=== PATIENT | male | born 1955 | race Caucasian/White ===

== ENCOUNTER 2023-04-30 07:32 | Observation (INO) ==
--- NOTE | 2023-04-23 11:37 | Anesthesiology Consultation ---
Date of Service April 23, 2023 Assessment & Plan (1) Encounter for pre-operative examination: Plan - medical clearance 04/08/23: "...yes...medically cleared for surgery..." - COVID screening: Per risk assessment analyst on 04/23/2023: Travel screen negative, no known COVID-19 positive contacts or current COVID-19 related symptoms in past 2 weeks. To surgeon's discretion if preop COVID testing is needed. - Patient requiring admission post-operatively. Plan for recheck with COVID [facility] AM DOS due to possibility that patient may have a roommate. OR aware. [facility] order placed. - surgery re-scheduled d/t cut on leg per [facility] ortho. - Outpatient joint assessment: Patient is currently scheduled for inpatient pathway. If re-evaluated pending system levels during current pandemic/surgeon requests outpatient pathway, patient is not recommended candidate for outpatient joint program from anesthesia standpoint. Chart Review Chart Review: Acceptable Risk for Surgery and Patient NOT seen in Pre Admission Testing History Surgery Operation Date: 04/30/23 10:10 Proposed Procedures p Left Total Knee Arthroplasty - Curly Lema MD Height/Weight Height: 5 ft 10 in Weight: 106.594 kg Allergies Allergy/AdvReac Type Severity Reaction Status Date / Time No Known Allergies Allergy Verified 04/23/23 11:04 Medications Home Medications Medication Instructions Recorded Confirmed Last Taken Lactobacillus acidophilus 10 10,000 mmu cells PO QAM 03/26/23 04/23/23 04/02/23 billion cell capsule (Probiotic) aspirin 81 mg capsule 81 mg PO QAM 03/26/23 04/23/23 04/02/23 latanoprost 0.005 % eye drops 1 drp OPB HS 03/26/23 04/23/23 04/14/23 22:00 multivitamin 1 tab PO QAM 03/26/23 04/23/23 04/02/23 naproxen sodium 220 mg tablet 440 mg PO QAM 03/26/23 04/23/23 04/02/23 (Aleve) Past Medical History Medical History Apnea Noted during most recent colonoscopy per patient - patient does snore at night - no hx of sleep study Elevated blood pressure reading in office with diagnosis of hypertension no medications monitor BP at home Eye pressure follows with eye doctor - reason for latanoprost>preventative History of COVID-19 09/2022>resolved Osteoarthritis Past Family History Family History Other No family history of adverse response to anesthesia Past Surgical History Surgical History H/O hand surgery left hand finger tendon repair H/O lumbar discectomy History of arthroscopy left knee meniscus repair History of colonoscopy History of tooth extraction Hx of nasal septoplasty Social History Smoking Status: Former smoker tobacco type: cigarettes and cigars Do You Dip or Chew Tobacco: No Smoking End Date: 5 years ago Hx Alcohol Use: Yes Alcohol type: beer alcohol intake frequency: a few times a week Hx Substance Use: No substance use type: does not use Lab Results Anesthesia Preop Results Results Anesthesia Widget: WBC 6.89 K/ul (4.8-10.8) 03/29/23 Hgb 15.5 g/dl (14.0-18.0) 03/29/23 Hct 45.1 % (42.0-52.0) 03/29/23 Plt 171 K/uL (130-400) 03/29/23 Na 139 mmol/L (136-145) 03/29/23 K 4.6 mmol/L (3.5-5.1) 03/29/23 Cl 104 mmol/L (98-107) 03/29/23 CO2 29 mmol/L (21-32) 03/29/23 BUN 16 mg/dl (6-23) 03/29/23 Creat 0.87 mg/dl (0.6-1.4) 03/29/23 Glucose Level 92 mg/dl (70-99(Fasting)) 03/29/23 PT 10.8 Seconds (9.0-12.0) 03/29/23 PTT 26.8 Seconds (21.0-31.0) 03/29/23 INR 1.0 (0.9-1.1) 03/29/23 Urine Color Dark Yellow 03/29/23 Urine Appearance Clear (Clear) 03/29/23 Urine pH 5.5 (4.5-7.5) 03/29/23 Urine Specific [place] 1.023 (1.000-1.030) 03/29/23 Urine Protein Negative (Negative) 03/29/23 Urine Glucose (UA) Negative (Negative) 03/29/23 Urine Ketones Trace (Negative) H 03/29/23 Urine Blood 2+ (Negative) H 03/29/23 Urine Nitrite Negative (Negative) 03/29/23 Urine Bilirubin Negative (Negative) 03/29/23 Urine Urobilinogen Negative (Negative) 03/29/23 Urine Leukocyte Esterase Negative (Negative) 03/29/23 Urine WBC (Auto) 1-5 /hpf (0-5) 03/29/23 Urine RBC (Auto) >30 /hpf (0-4) H 03/29/23 Urine Hyaline Casts (Auto) 1-5 /lpf (0-5) 03/29/23 Urine Epithelial Cells (Auto) 0-5 /lpf (0-5) 03/29/23 Urine Bacteria (Auto) Negative (Negative) 03/29/23 SARS-CoV-2, RNA, NAAT NEGATIVE (NEGATIVE) 04/16/23 Blood Type O Positive 03/29/23 Antibody Screen NEGATIVE 03/29/23 Testing Electrocardiogram Date: 03/29/23 NSR, rate 60 bpm
[~2023-04-30 07:32] MED LIST: ACETAMINOPHEN 500 MG TAB PO SCH; BUPIVACAINE 0.5 % 5 MG/1 ML PF 10ML VIAL ONE; CeleBREX 200 MG CAP PO SCH; FAMOTIDINE 20 MG TAB PO SCH; LR 500ML BOLUS, THEN 15ML/HR IV SCH; LR 60ML/HR IV SCH; ROPIVACAINE 0.5% 5 MG/ML 30 ML VIAL ONE; ROPIVACAINE 0.5% HCL/PF 150 MG, BUPIVACAINE 0.75% MPF 20 ML, EPINEPHrine 0.15 MG, Ketor... INFIL SCH; TRANEXAMIC ACID 1,000 MG **IV Pre-op IV SCH; ceFAZolin 2000MG 2,000 MG/15 ML SYR IV SCH; dexAMETHasone 4 MG TAB PO SCH; oxyCODONE HCL 10 MG TABCR (OxyCONTIN) PO SCH; traMADol HCL 50 MG TABLET PO SCH
[2023-04-30] MEDS ORDERED: PROPOFOL IV EMULSION 10 MG/ML 20 ML VIAL IV ONE ×3 (09:12→12:51)
[2023-04-30] MEDS ORDERED: fentaNYL citrate PF 100 MCG/2 ML VIAL IV PRN (09:14)
[2023-04-30] MEDS ORDERED: ONDANSETRON INJ 2 MG/ML 2 ML VIAL IV PRN ×2 (09:14→15:00)
[2023-04-30] MEDS ORDERED: ePHEDrine sulfate 50 MG/ML AMP IV PRN (09:14)
[2023-04-30] MEDS ORDERED: ATROPINE SULFATE 0.1 MG/ML 10ML SYR IV PRN (09:14)
[2023-04-30] MEDS ORDERED: fentaNYL citrate PF 100 MCG/2 ML VIAL ONE (09:31)
[2023-04-30] MEDS ORDERED: MIDAZOLAM HCL 1 MG/ML 2ML VIAL ONE (09:31)
--- NOTE | 2023-04-30 09:51 | History & Physical Bridge Note ---
Date of Service April 30, 2023 History & Physical Bridge Note I have examined the patient, reviewed the History & Physical and in the interval since the performance of the History & Physical I have noted the following changes of clinical significance: no changes noted left leg lac healed
[2023-04-30] MEDS ORDERED: ORTHO JOINT ANESTHETIC ONE (10:01)
--- NOTE | 2023-04-30 13:17 | Operative Report ---
Post Operative Report Pre & Post Diagnosis Operation Date: 04/30/23 09:50 Pre-Op Diagnosis: Osteoarthritis Knee Left Post-Op Diagnosis: Osteoarthritis Knee Left I identified the patient and participated in the time-out.: Yes Procedure Operation Date: 04/30/23 09:50 Actual Procedures p Left Total Knee Arthroplasty(Left) - Curly Lema MD Surgeon Curly Lema MD Telephone Exchange Operator Hollie Ramires, no resident or fellow available Estimated Blood Loss 10 Findings Consistent with Post-Op Diagnosis Specimens None Anesthesia Type MAC Spinal Regional Complications none Disposition Accompanied Patient To Recovery: No Disposition: Recovery Room Indications [place] is 68 and has severe arthritis of the left knee. He has failed conservative treatment and wishes to have his knee replaced. Description of Procedure Informed consent. Patient identified. He identified the operative site as the left knee. I marked with my initials. Preoperative surgical timeout performed. Preop dose of IV antibiotics given. TXA given. Taken to the OR positioned supine on the OR table. Bump under the left hip. Tourniquet on the left thigh and a padded post under the left calf. The limb was prepped prepped and draped in the usual sterile fashion. DVT prophylaxis intraoperatively with foot pumps. Postop early mobility and chemoprophylaxis. Previous abrasions on the lower leg area are completely healed. Range of motion 0 to about 110 to 115 degrees with 1+ mid position MCL laxity. Otherwise stable. The leg was prepped and draped in the usual sterile fashion. Limb exsanguinated with the Esmarch. Tourniquet inflated 250 mmHg. Midline longitudinal incision was made followed by medial parapatellar arthrotomy. Soft tissue on the anterior aspect of the distal femur was resected. Retropatellar fat pad removed. An extensile medial release performed. Synovial reflection in the lateral gutter released. Patella everted and knee flexed. ACL was mostly d eficient. The medial meniscus was mostly deficient. There were grade 4 changes involving the medial compartment diffusely. Grade 3 changes on the patella. Marginal osteophytes throughout the knee which were removed and intact lateral compartment. Cruciate ligaments were resected. The meniscal remnants were resected. The knee was then subluxated and the forestry pilot hole drill was used to place hole just in front of and between the tibial spines. The intramedullary alignment magnus was applied. The guide was positioned to the tibial tubercle and set to resect 10 mm off of the lateral side corresponding to a skim cut medially. The knee was then placed into full extension and the extra medullary alignment magnus was utilized to confirm alignment and slope. This cut was then made and finished by hand and with a rasp. Sized to a 4. 0 degree cutting block. Manager Content hole drilled into the distal femur just above the PCL origin. Intramedullary alignment magnus inserted. 12 mm thick cut 7 degree valgus left knee. The cut was made distal to the collateral ligaments and the extension gap was an asymmetrically tight 10. Epicondylar axis marked out. The sizing block was applied and sized to a 4. The external rotation drill holes matched the epicondylar axis. The size 4 anterior down cutting block was applied and the cuts were made protecting the collateral ligaments. The flexion gap was also in a symmetric 10. The box cutting guide was applied and lateralized and the box cut was made. I this point did more medial releasing. I applied the size 4 tibial tray lateralized is much as possible and remove the uncapped medial bone. Posterior medial osteophytes were resected and the posterior capsule off the tibia and the gastrocnemius attachment were released along with more of the MCL. At this time I was then able to get the 12.5 mm extension and flexion block in which resolve the lateral looseness. There was no lateral gapping with the knee in extension. The femoral trial was applied. The tibia was aligned with the tubercle and the keel punch was performed. Trialing was then performed which showed good stability and range of motion. I then went to the patella. It was 25 mm thick. A 38 mm 3 peg oval dome patella was selected. The guide was set to preserve 16 mm of bone. The cut was made with residual 15 mm. I carefully aligned the paddle. There was significant bony wear laterally with eburnation. There was a 2 to 3 mm defect about 3 mm wide underneath the medial implant which would need to be filled with cement. The cartilage was removed here and some drill holes were made into the patella and into the medial tibial plateau. Tracking was fine on the patella with no hands technique. Components were removed the canals were plugged and the bony surfaces were meticulously prepared with pulsatile lavage and dried.2 bags of Simplex P cement were mixed and then while in a doughy state smears were placed on the posterior condyles and the, components were cemented in place femur tibia and patella and held in extension with a trial spacer until cement hardened. At that time the tourniquet was let down after 108 minutes of inflation and meticulous hemostasis was performed with minimal bleeding. Prior to cementation Ortho joint mix was injected into the back the knee. Trialing was again performed showing 1+ LCL laxity in mid position the knee was otherwise stable without any gapping and full extension. The patella tracked fine. The knee was then subluxated and the back of the knee was inspected for cement and removed as encountered. The final polyethylene was inserted and the knee was reduced. Soft tissue was kept moist throughout the surgical procedure. Extensor mechanism closed above the equator the patella with interrupted #2 FiberWire. Below the equator with running and interrupted #1 Vicryl. The skin was closed in layers with 0 and 2-0 Vicryl with viktor on the skin. Composite patellar thickness after the reconstruction was 25 mm. [place] assisted flexion with the extensor mechanism closed was 115 to 120 degrees. Lift off pull out negative. Sterile dressing was applied Xeroform 4 x 4's ABD soft wrap full-length Be wrap and a knee immobilizer. He was awakened from anesthesia without difficulty and taken to the recovery room in stable condition. There were no complications counts were correct and blood loss is estimated to be 10 cc. The resected tissue of bone and soft tissue was sent for specimen. At the conclusion of the operation spoke to his and discussed my findings. Components inserted with a J[employer]J PFC Sigma rotating platform knee a size 38 3 peg oval dome patella. For left posterior stabilized femur and a 4 mobile-bearing keeled tray with a posterior stabilized size 4 x 12.5 mm thick polyethylene insert. Rehab according to total knee protocol. I attest to the content of the Intraoperative Record and any orders documented therein. Any exceptions are noted below.
--- NOTE | 2023-04-30 13:34 | Operative Report ---
Post Operative Report Pre & Post Diagnosis Operation Date: 04/30/23 09:50 Pre-Op Diagnosis: Osteoarthritis Knee Left Post-Op Diagnosis: Osteoarthritis Knee Left I identified the patient and participated in the time-out.: Yes Procedure Operation Date: 04/30/23 09:50 Actual Procedures p Left Total Knee Arthroplasty(Left) - Curly Lema MD Surgeon Curly Lema M.D. [employer] Hollie Ramires PA-C, no resident or fellow available Estimated Blood Loss 10 Findings Consistent with Post-Op Diagnosis Specimens bone and soft tissue Anesthesia Type MAC Spinal Regional Description of Procedure Patient was taken to the operating room, placed under spinal anesthesia. Given 2 g of IV Ancef for surgical prophylaxis. Peripheral nerve block given preoperatively. I was present during the entire case and assisted with positioning, tissue retraction, trialing of implants, implantation of hardware, closure and dressings. Please see Dr. Lema's operative report for further detail. Patient was awakened and transferred to the recovery room in stable condition. I attest to the content of the Intraoperative Record and any orders documented therein. Any exceptions are noted below.
--- NOTE | 2023-04-30 14:12 | Anesthesiology Progress Note ---
Date of Service April 30, 2023 Anesthesia Post Procedure Vital Signs Vital Signs: Temp Pulse Resp BP Pulse Ox O2 Del Method O2 Flow Rate 04/30/23 14:05 70 12 131/73 93 Room Air 04/30/23 13:55 97.3 F L 70 13 144/76 H 94 Room Air 04/30/23 13:45 75 13 145/75 H 98 Oxymask 4 04/30/23 13:35 76 13 116/93 99 Oxymask 4 04/30/23 13:27 96.8 F L 77 14 145/77 H 98 Oxymask 6 04/30/23 08:05 98.2 F 75 20 143/84 H 94 Room Air Pain Intensity Left Knee: Pain Intensity: 2 Transfer of Care Handoff Completed per policy Notes Mental Status: alert / awake / arousable and participated in evaluation Patient Amnestic to Procedure: Yes Nausea / Vomiting: adequately controlled Pain: adequately controlled Airway Patency, RR, SpO2: stable & adequate BP & HR: stable & adequate Hydration State: stable & adequate Neuraxial Anesthesia: was administered and sensory block is resolving Anesthetic Complications: no major complications apparent and Pt Satisfied with anesthetic care
--- NOTE | 2023-04-30 14:33 | XRay Report ---
XR knee LT 1 or 2V routine CLINICAL HISTORY: s/p left TKA COMPARISON: Knee radiographs 03/25/2023. FINDINGS: Alignment of the total left knee arthroplasty is anatomic. There is no periprosthetic frac ture or unexpected radiopaque foreign body. There are skin viktor. IMPRESSION: Expected findings following total left knee arthroplasty. ACT 112: Negative or not required by law. Electronically signed by: Paolo Gilliland M.D. 04/30/2023 2:32 PM
[2023-04-30] MEDS ORDERED: HYDROmorphone INJ 1 MG/ML SYRINGE IV PRN (15:00)
[2023-04-30] MEDS ORDERED: NALOXONE HCL 0.4 MG/1 ML VIAL/CARP IV PRN (15:00)
[2023-04-30] MEDS ORDERED: hydrALAZINE HCL 20 MG/ML VIAL IV PRN (15:00)
[2023-04-30] MEDS ORDERED: METOCLOPRAMIDE HCL INJ 5 MG/ML 2 ML VIAL IV PRN (15:00)
[2023-04-30] MEDS ORDERED: HYDROmorphone INJ 0.5 MG/0.5 ML SYR IV PRN (15:00)
[2023-04-30] MEDS ORDERED: SODIUM CHLORIDE 0.9% 1000ML 1,000 ML IV SCH (15:00)
[2023-04-30] MEDS ORDERED: bisacodyL 10 MG SUPP PR PRN (15:00)
[2023-04-30] MEDS ORDERED: traMADol HCL 50 MG TABLET PO PRN (15:00)
[2023-04-30] MEDS ORDERED: MAGNESIUM HYDROXIDE SUSP 30 ML UDC PO PRN (15:00)
[2023-04-30] MEDS: ACETAMINOPHEN 500 MG TAB PO SCH ×2 (15:47→21:14)
[2023-04-30] MEDS: KETOROLAC TROMETHAMINE 15 MG/ML VIAL IV SCH ×2 (15:50→23:01)
--- NOTE | 2023-04-30 17:18 | Orthopedic Progress Note ---
Date of Service April 30, 2023 Assessment & Plan (1) S/P total knee arthroplasty: Plan: Doing well. Discussed surgery. Reviewed plan and pain management. X-rays are reviewed showing good positioning of the components no evidence of complication. Will be in 2 assessed him in the morning. Discussed rehab. Admission and Anticipated Discharge Date Admission Date: April 30, 2023 Subjective No issues reported. Pain is well controlled. Discussed results of surgery. Physical Exam Physical Exam: Dressing clean and dry. I elevated his leg on several pillows. DP and PT pulses 1+. Ankle and toe plantarflexion dorsiflexion and eversion is 5- out of 5. Sensation intact to light touch no significant swelling warm with capillary refill less than 2 seconds Results & Data Vital Signs (Past 12 Hours) Vital Signs Temp Pulse Pulse Resp BP Pulse Ox O2 Del Method 04/30/23 17:00 78 16 143/69 H 96 Room Air 04/30/23 16:16 Room Air 04/30/23 15:55 36.5 C 64 18 119/65 97 Room Air 04/30/23 15:39 36.6 C 68 16 135/69 98 Nasal Cannula 04/30/23 15:00 36.5 C 66 18 138/68 97 Nasal Cannula 04/30/23 14:45 72 18 103/82 97 Nasal Cannula 04/30/23 14:30 71 18 132/65 96 Nasal Cannula 04/30/23 14:15 69 13 140/72 97 Nasal Cannula 04/30/23 14:05 36.4 C L 70 12 131/73 93 Room Air 04/30/23 13:55 36.3 C L 70 13 144/76 H 94 Room Air 04/30/23 13:45 75 13 145/75 H 98 Oxymask 04/30/23 13:35 76 13 116/93 99 Oxymask 04/30/23 13:27 36.0 C L 77 14 145/77 H 98 Oxymask 04/30/23 08:05 36.8 C 75 20 143/84 H 94 Room Air O2 Flow Rate 04/30/23 17:00 04/30/23 16:16 04/30/23 15:55 04/30/23 15:39 2 04/30/23 15:00 2 04/30/23 14:45 2 04/30/23 14:30 2 04/30/23 14:15 2 04/30/23 14:05 04/30/23 13:55 04/30/23 13:45 4 04/30/23 13:35 4 04/30/23 13:27 6 04/30/23 08:05
[2023-04-30] MEDS: DOCUSATE SODIUM 100 MG CAP PO SCH (20:48)
[2023-04-30] MEDS: ceFAZolin 2000MG 2,000 MG/15 ML SYR IV SCH (20:50)
[2023-04-30] MEDS ORDERED: SENNA 8.6 MG TAB PO SCH (21:00)
[2023-04-30] MEDS ORDERED: LATANOPROST 0.005% OP SOLN 2.5 ML BTL OPB SCH (21:00)
[2023-05-01] MEDS: ACETAMINOPHEN 500 MG TAB PO SCH (04:59)
[2023-05-01] MEDS: KETOROLAC TROMETHAMINE 15 MG/ML VIAL IV SCH (04:59)
[2023-05-01] MEDS: ceFAZolin 2000MG 2,000 MG/15 ML SYR IV SCH (04:59)
[2023-05-01 07:56] LABS: Hemoglobin 13.3 g/dl (14.0-18.0); Mean Corpuscular Hemoglobin 31.4 pg (25.0-34.0); Mean Corpuscular Volume 89.8 fL (80.0-100.0); Mean Platelet Volume 9.1 fL (9.4-12.4); Platelet Count 144 K/uL (130-400); RDW Coefficient of Variation 13.2 % (11.5-14.5); RDW Standard Deviation 43.5 fL (36.4-46.3); Red Blood Count 4.23 M/uL (4.70-6.10); White Blood Count 13.89 K/ul (4.8-10.8)
[2023-05-01] MEDS: oxyCODONE HCL IR 5 MG TAB (IMMEDIATE RELEASE) PO PRN ×2 (08:07→10:43)
[2023-05-01] MEDS: DOCUSATE SODIUM 100 MG CAP PO SCH (08:08)
[2023-05-01 08:24] LABS: BUN Creatinine Ratio 18.5 (10-20); Calcium 8.9 mg/dl (8.6-10.3); Creatinine Clr Calc Pharmacy 103.7 ml/min; Est GFR (African American) 104.4 ml/min; Potassium 4.2 mmol/L (3.5-5.1)
[2023-05-01] MEDS ORDERED: MULTIVITAMIN TAB PO SCH (09:00)
[2023-05-01] MEDS ORDERED: ADVANCED PROBIOTIC 1250 MG CAPSULE PO SCH (09:00)
[2023-05-01] MEDS ORDERED: ASPIRIN 81 MG ECTAB PO SCH (09:00)
--- NOTE | 2023-05-01 09:23 | Orthopedic Progress Note ---
Date of Service May 01, 2023 Assessment & Plan (1) S/P total knee arthroplasty: Plan: Postop day 1-status post left total knee arthroplasty Weight-bear as tolerated left lower extremity with the assistance of a walker. Knee immobilizer as needed for comfort. PT and OT to start today. Ice and elevation of left leg to reduce pain and swelling. Eliquis 2.5 mg p.o. twice daily x2 to 4 weeks after surgery. To start this morning. YAMILKA stockings and AV impulse boots for DVT prophylaxis All medications have been continued. Pain well controlled with oral pain medications. Regular diet. Dr. Lema present for today's visit. Plans for discharge to home with home health if cleared by physical therapy and Occupational Therapy. All questions were answered. Discharge instructions were reviewed. Follow-up as scheduled as an outpatient. Admission and Anticipated Discharge Date Admission Date: April 30, 2023 Subjective Patient sitting up eating breakfast. is present. He notes some anterior thigh pain. Denies any postoperative nausea, vomiting, chest pains or shortness of breath. He has been out of bed with nursing. He has not had physical therapy occupational therapy yet. He is tolerating a regular diet. Review of Systems Review of Systems: As per HPI Physical Exam Musculoskeletal: Left knee dressings are clean, dry and intact. Toes move freely. Full ankle range of motion. Strength is 5/5. Distal sensation is normal. Distal pulses are 1+. Capillary fill is brisk. He is able to independently straight leg raise. Results & Data Vital Signs (Past 12 Hours) Vital Signs Temp Pulse Resp BP Pulse Ox O2 Del Method O2 Flow Rate 05/01/23 07:00 Room Air 05/01/23 07:00 36.5 C 59 L 18 153/86 H 97 Room Air 05/01/23 03:12 36.5 C 60 18 149/71 H 97 Nasal Cannula 2 04/30/23 22:58 36.4 C L 62 18 148/73 H 97 Room Air Laboratory Results 05/01/23 05/01/23 Range/Units 07:28 07:28 WBC 13.89 H (4.8-10.8) K/ul RBC 4.23 L (4.70-6.10) M/uL Hgb 13.3 L (14.0-18.0) g/dl Hct 38.0 L (42.0-52.0) % MCV 89.8 (80.0-100.0) fL MCH 31.4 (25.0-34.0) pg MCHC 35.0 (32.0-36.0) g/dL RDW Std Deviation 43.5 (36.4-46.3) fL RDW Coeff of Anders 13.2 (11.5-14.5) % Plt Count 144 (130-400) K/uL MPV 9.1 L (9.4-12.4) fL Sodium 135 L (136-145) mmol/L Potassium 4.2 (3.5-5.1) mmol/L Chloride 103 (98-107) mmol/L Carbon Dioxide 26 (21-32) mmol/L Anion Gap 6 (3-11) BUN 15 (6-23) mg/dl Creatinine 0.81 (0.6-1.4) mg/dl Est Cr Clr Drug Dosing 103.7 ml/min Est GFR ( Amer) 104.4 ml/min Est GFR (Non-Af Amer) 90.0 ml/min BUN/Creatinine Ratio 18.5 (10-20) Glucose 120 H (70-99(Fasting)) mg/dl Calcium 8.9 (8.6-10.3) mg/dl Diagnostic Findings XR knee LT 1 or 2V routine CLINICAL HISTORY: s/p left TKA COMPARISON: Knee radiographs 03/25/2023. FINDINGS: Alignment of the total left knee arthroplasty is anatomic. There is no periprosthetic fracture or unexpected radiopaque foreign body. There are skin viktor. IMPRESSION: Expected findings following total left knee arthroplasty.
--- NOTE | 2023-05-01 09:27 | Discharge Summary ---
Date of Service May 01, 2023 Discharge Data Procedures Performed Operation Date: 04/30/23 09:50 Actual Procedures p Left Total Knee Arthroplasty(Left) - Curly Lema MD Hospital Course (1) S/P total knee arthroplasty: Patient was kept in observation at [facility] after undergoing an elective left total knee arthroplasty on April 30, [address] Lema. The surgery was performed with spinal anesthesia, sedation and a peripheral nerve block. He was given 2 g of IV Ancef for surgical prophylaxis preoperatively and this was continued for 24 hours after surgery. In the recovery room she had an x-ray of his left knee which showed a stable prosthesis without complications. He tolerated his surgery well without any intraoperative complications. Postoperatively, he was allowed to weight-bear as tolerated left lower extremity with the assistance of a walker and a knee immobilizer when out of bed. Encouraged ice and elevation of her left lower extremity as needed for pain and swelling. He was given oxycodone,tramadol, Tylenol, Toradol and IV Dilaudid as needed for pain medication. His pain was well controlled while he was an inpatient. He was given a regular diet. He tolerated his diet well without any postoperative nausea or vomiting. His home medications were continued. He was started on Eliquis on postoperative day 1 and this will be continued for 2-4 weeks after surgery. He was given YAMILKA stockings and AV impulse boots for DVT prophylaxis as well. Postoperative H&H was stable. Postoperative CMP was normal. He was seen and evaluated by Occupational Therapy and physical therapy. He did well out of bed and was deemed safe for discharge on 05/01/2023. His dressings from surgery remained in place and will be changed as an outpatient. Discharge instructions were reviewed. All questions were answered. He knows to call with any further problems, questions or concerns. He was discharged to his home in stable condition on May 01, 2023. Pain medications were sent to his pharmacy.
[2023-05-01] MEDS ORDERED: APIXABAN 2.5 MG TAB PO SCH (21:00)
== END 2023-05-01 11:01 | disposition home health service (06) ==
LOC: 3E 07:32 → ASU 07:32